=== PATIENT | male | born 1995 | race Caucasian/White ===

== ENCOUNTER 2016-11-05 14:15 | Emergency (ER) | payer MEDICAID ==
[~2016-11-05] VITALS: Ht 180.3 cm; Wt 67.0 kg
[2016-11-05 14:35] VITALS: Ht 180.3 cm; Wt 67.0 kg
--- NOTE | 2016-11-05 16:38 | ERD ---
ER Documentation Chief Complaint Date/Time DATE: 11/05/16 Chief Complaint Rash/itchiness to abdominal region HPI The patient is a 21-year-old male who presents to the Emergency Department with complaint of itchiness to a region on his lower abdomen. The patient reports that approximately three months ago, mid-July, he was working, when he sustained chemical degroot to his lower abdomen and wrists. Since, he has been applying an kuor-yxj-uevbewb cream to the affected regions. However, he notes that over the past several days, he has developed increased pruritus to the affected region to the lower abdomen, that is not resolved with application of the jtbs-bzg-oriudeb creams. Therefore, he presents today for symptomatic relief. He denies any weeping, drainage, spreading redness, warmth, or formation of vesicles/bullae/ulcerations. Does admit to wearing a metal belt daily. However, he insists that the belt is not the cause of his symptoms. He denies any lip or tongue swelling, wheezing, shortness of breath, or throat tightness. Denies any new exposures. Denies exposure to other new foods, drinks , detergents, lotions, shampoos, plants, animals. No other complaints at this time. ROS All systems reviewed and are negative except as per history of present illness. Medications Home Meds Active Scripts Triamcinolone Acetonide* (Kenalog*) 0.1%-15GM Cr, 1 APPLIC TOP BID, #1 TUB Prov:EMERSON PLASCENCIA PA-C 11/05/16 Allergies Allergies: Coded Allergies: No Known Allergy (Unverified , 11/05/16) PMhx/Soc Medical and Surgical Hx: pt denies Medical Hx, pt denies Surgical Hx Hx Alcohol Use: No Hx Substance Use: No Smoking Status: Never smoker Physical Exam Vitals Vital Signs Date Time Temp Pulse Resp B/P Pulse Ox O2 Delivery O2 Flow Rate FiO2 11/05/16 14:35 98.2 73 18 121/78 99 Physical Exam GENERAL: Well-developed, well-nourished, male, in no acute distress. HEENT: Head is normocephalic, atraumatic. No scleral pallor or icterus. Pupils equal, round and reactive to light. Conjunctiva pink. Moist mucous membranes. Clear oropharynx. No lip or tongue swelling. Phonation is normal. Vestibular swelling. No brawny induration. No trismus. No stridor. NECK: Supple. No masses, no tenderness, no lymphadenopathy. Trachea midline. RESPIRATORY: Lungs are clear to auscultation bilaterally. No rales, rhonchi or wheezing. Equal breath sounds. Normal expiratory effort. CARDIOVASCULAR: Regular rate and rhythm. S1 and S2 normal. Distal pulses are palpable, 2+ bilaterally. Capillary refill is less than 2 seconds. GASTROINTESTINAL: Abdomen is soft, non-tender, and non-distended. No guarding, no rebound tenderness. Normal bowel sounds. EXTREMITIES: No clubbing, cyanosis, or edema. Normal skin perfusion. Moving all extremities. Muscle tone is normal. No focal swelling or erythema. NEUROLOGIC: The patient is alert, awake, and oriented x 3. No focal neurologic deficits. INTEGUMENT: Skin is intact. Warm and dry. Eczematous-appearing, erythematous excoriated, lichenified, plaque-like rash to suprapubic abdomen, and mildly to wrists. No petechiae or purpura present. No bullae, vesicles, ulcerations. No skin sloughing. No pain away from site of rash. No crepitus. No drainage, weeping, bleeding. No skip or target lesions. PSYCHIATRIC: Appropriate. Cooperative. Procedures/MDM This patient is a 21-year-old male with past medical history of asthma presenting to the emergency department with symptoms with clinical appearance of eczematous reaction/contact dermatitis. On physical examination the patient had an eczematous-appearing, erythematous excoriated, lichenified, plaque-like rash to suprapubic abdomen, and mildly to wrists. Otherwise, no target lesions, skip lesions, crepitus, skin sloughing, urticaria, oozing, central clearing were noted. Vital signs were stable. The patient's oropharynx and airway were patent, and he exhibited no breathing difficulties, wheezing, tongue swelling or lip swelling. No evidence of angioedema, airway compromise, inability to handle oral secretions or stridor. Patient's phonation is normal. No wheezing auscultated on physical examination. Circulation was appropriate, with no systemic signs of anaphylaxis, no hypotension. No associated purpura or generalized petechiae. Other differential diagnoses considered include, but are not limited to, allergic reaction, insect bite, fungal infection, cellulitis, MRSA, impetigo, shingles, herpes simplex virus, abscess, dermatitis, viral syndrome, candidiasis , medication reaction, seborrheic dermatitis, lichen simplex chronicus, contact dermatitis, irritant dermatitis, psoriasis, dyshidrosis, ichthyosis, scabies, Ang Akash syndrome, epidermolysis bullosa, toxic epidermal necrolysis, meningococcemia, toxic shock syndrome, ymjk-txwj-jwf-mouth disease. No evidence of crepitus, skip lesions or pain away from the site of rash, that would be concerning for necrotizing fasciitis or myositis. No mucosal involvement or appearance concerning for Ang Akash syndrome or TENS. No airway compromise or concern for anaphylaxis. No indication of angioedema. No excoriations, no lesions in webbed spaced of fingers or to groin, no burrows, no evidence of scabies. Clinical presentation not consistent with erythema nodosum, lyme disease, fungal infection or erythema migrans. After rest the patient reports no new complaints and remained stable with appropriate vital signs and no signs of respiratory distress. Upon review and interpretation of the patient's presentation, and overall ER course, I believe the patient's symptoms are most consistent with dermatitis, NOS. Clinically, patient's clinical presentation appears consistent with contact vs. atopic dermatitis. At this time, the patient is in stable condition and not experiencing any wheezing or signs of respiratory distress, and therefore he can be discharged home with prescription for Triamcinolone and given strict return precautions for signs of deteriorating or worsening condition. He is advised to follow up with his primary care provider for reevaluation and further management within the next 2-3 days, or return to the ER sooner for any new or worsening symptoms. Additionally, should symptoms persist, he is advised to follow up with dermatology as well. I shared my medical decision making and plan with the patient at length and in great detail , and he verbally understands and agrees with the plan for further observation and care as an outpatient. At the time of discharge, all questions were answered. Departure Diagnosis: Primary Impression: Dermatitis Condition: Stable Patient Instructions: Contact Dermatitis, Dermatitis, Non-Specific [facility] Additional Instructions: Llame al doctor MAANA y tone rolando ANTONIO PARA DENTRO DE 2-3 BALDERRAMA.Dgale a la secretaria que nosotros le instruimos hacer esta antonio.Avise o llame si duron condicin se empeora antes de la antonio. Regresa aqui si peor o no mejor. EMERSON PLASCENCIA PA-C Nov 05, 2016 16:38
[2016-11-05] MEDS ORDERED: TRIA15CR55 TOP (16:39)
== END 2016-11-05 17:00 | disposition home or self-care (01) ==
LOC: FTE 14:15
DX: L30.9 Dermatitis, unspecified (principal)
CPT/HCPCS: 99283

== ENCOUNTER 2016-11-11 02:07 | Emergency (ER) | payer MEDICAID ==
[~2016-11-11] VITALS: Ht 177.8 cm; Wt 78.0 kg
[~2016-11-11 02:07] MED LIST: TRIA15CR55 TOP
[2016-11-11 02:10] VITALS: Ht 177.8 cm; Wt 78.0 kg
[2016-11-11] MEDS ORDERED: TR1B60 TOP (05:17)
[2016-11-11] MEDS ORDERED: FLUO120C4 TOP (05:46)
[2016-11-11] MEDS ORDERED: HYDR-3011 PO (05:47)
--- NOTE | 2016-11-11 05:48 | ERD ---
ER Documentation Chief Complaint Date/Time DATE: 11/11/16 TIME: 05:41 Chief Complaint scaterred body rashes HPI 21-year-old male presents to emergency department for complaints of rash upper trunk and upper extremities. Patient noted some dryness of the skin on affected area. Patient is complaining of itching, took ocqs-ccn-iixklld cream only mild relief. Patient denies any fever or chills. ROS All systems reviewed and are negative except as per history of present illness. Medications Home Meds Active Scripts Hydroxyzine Hcl* (Hydroxyzine Hcl*) 25 Mg Tablet, 25 MG PO Q8H Y for ITCHING, # 30 TAB Prov:SHAHEED MUNGUIA HEAT [employer]ER 11/11/16 Fluocinonide* (Fluocinonide* Cream) 0.1% - 120 Gm Cream..g., 1 APPLIC TOP BID, # 1 TUB Prov:SHAHEED MUNGUIA NP 11/11/16 Triamcinolone Acetonide* (Kenalog*) 0.1%-15GM Cr, 1 APPLIC TOP BID, #1 TUB Prov:EMERSON PLASCENCIA PA-C 11/05/16 Allergies Allergies: Coded Allergies: No Known Allergy (Unverified , 11/05/16) PMhx/Soc Medical and Surgical Hx: pt denies Medical Hx, pt denies Surgical Hx History of Surgery: No Anesthesia Reaction: No Hx Neurological Disorder: No Hx Respiratory Disorders: No Hx Cardiac Disorders: No Hx Psychiatric Problems: No Hx Miscellaneous Medical Probl: No Hx Alcohol Use: No Hx Substance Use: No Hx Tobacco Use: Yes (5 sticks/day) Smoking Status: Current every day smoker FmHx Family History: No coronary disease, No diabetes, No other Physical Exam Vitals Vital Signs Date Time Temp Pulse Resp B/P Pulse Ox O2 Delivery O2 Flow Rate FiO2 11/11/16 02:10 97.2 77 20 131/69 100 Physical Exam GENERAL: The patient is well developed and appropriate for usual state of health, in no apparent distress. CHEST: Clear to auscultation bilaterally. There are no rales, wheezes or rhonchi. HEART: Regular rate and rhythm. No murmurs, clicks, rubs or gallops. No S3 or S4. ABDOMEN: Soft, nontender and nondistended. Good bowel sounds. No rebound or guarding. No gross peritonitis. No gross organomegaly or masses. No Navarro sign or McBurney point tenderness. BACK: No midline or flank tenderness. EXTREMITIES: Equal pulses bilaterally. There is no peripheral clubbing, cyanosis or edema. No focal swelling or erythema. Full range of motion. Grossly neurovascularly intact. NEURO: Alert and oriented. Cranial nerves 2-12 intact. Motor strength in all 4 extremities with 5/5 strength. Sensation grossly intact. Normal speech and gait. SKIN: Noted plaques of dry skin noted in the periumbilical area and the upper extremities area, dried skin noted. No erythema noted. There is no apparent rash or petechia. The skin is warm and dry. HEMATOLOGIC AND LYMPHATIC: There is no evidence of excessive bruising or lymphedema. No gross cervical, axillary, or inguinal lymphadenopathy. Procedures/MDM Medical decision making: Patient's symptoms are nonspecific at this time, most likely some form of dermatitis. No symptoms of allergic reaction, no symptoms of any acute bacterial infection. No symptoms of any coagulopathies. Patient was given for hydroxyzine, Fluocinonide . Advised to follow-up with medicare specialist for further evaluation. Patient was advised to return to emergency department for any worsening symptoms. Disposition: Home. Stable. Departure Diagnosis: Primary Impression: Dermatitis Condition: Stable Patient Instructions: Dermatitis, Non-Specific SHAHEED MUNGUIA NP Nov 11, 2016 05:48
== END 2016-11-11 05:55 | disposition home or self-care (01) ==
LOC: FTE 02:07
DX: L30.9 Dermatitis, unspecified (principal); F17.210 Nicotine dependence, cigarettes, uncomplicated
CPT/HCPCS: 99284

== ENCOUNTER 2016-12-31 17:21 | Emergency (ER) | END 2016-12-31 19:02 | disposition home or self-care (01) | DX: L98.9 Disorder of the skin and subcutaneous tissue, unspecified (principal); F17.210 Nicotine dependence, cigarettes, uncomplicated ==